=== PATIENT | female | born 1955 | race Caucasian/White ===

== ENCOUNTER 2023-12-31 20:15 | Emergency (ER) | payer MEDICARE, OTHER, SELFPAY ==
[2023-12-31 20:25] VITALS: BP 162/67; PULSE 98; RESP 18; TEMP 36.6; O2SAT 96; BMI 23.5
[2023-12-31 20:56] LABS: Add Manual Diff / Slide Review NO; Basophils Absolute Auto 100 /uL (0-100); Basophils Percent Auto 0.7 % (0-2); Eosinophils Absolute Auto 200 /uL (0-450); Hematocrit 36.5 % (36-46); Hemoglobin 12.5 g/dL (12.0-16.0); Lymphocytes Absolute Auto 1900 /uL (1100-4500); Lymphocytes Percent Auto 20.6 % (25-40); Mean Corpuscular HGB Conc 34.1 % (30-36); Mean Corpuscular Hemoglobin 31.8 PG (26-34); Mean Corpuscular Volume 93.2 fL (80-100); Monocytes Absolute Auto 1200 /uL (0-900); Monocytes Percent Auto 12.6 % (3-14); Neutrophils Absolute Auto 6000 /uL (1500-7000); Neutrophils Percent Auto 64.1 % (50-75); Platelet Count 318 X10^3/uL (150-400); Red Blood Cell Count 3.91 X10^6/uL (4.0-5.2); Red Cell Distribution Width 13.1 % (11.6-14.8); White Blood Cell Count 9.4 X10^3/uL (4.5-11.0)
[2023-12-31 21:06] LABS: Alanine Aminotransferase 25 IU/L (<35); Albumin 4.2 g/dL (3.5-5.0); Albumin Globulin Ratio 1.6 (1.0-2.8); Alkaline Phosphatase 81 U/L (38-126); Aspartate Aminotransferase 20 IU/L (14-36); BUN Creatinine Ratio 27.2 (6-22); Bilirubin Total 0.4 mg/dL (0.2-1.3); Blood Urea Nitrogen 25 mg/dL (7-17); Calcium 8.9 mg/dL (8.4-10.2); Carbon Dioxide 27 mmol/L (22-32); Chloride 108 mmol/L (98-107); Estimated Glomerular Filt Rate > 60 mL/min (>60); Globulin 2.6 g/dL (1.7-4.1); Glucose 115 mg/dL (80-110); HEMOLYSIS < 15 (0-50); Lipase 65 U/L (23-300); Potassium 4.1 mmol/L (3.4-5.1); Sodium 138 mmol/L (137-145); Total Protein 6.8 g/dL (6.3-8.2)
--- NOTE | 2023-12-31 21:20 | ED_ITS ---
HPI - General Adult General Chief complaint: Abdominal Pain Stated complaint: abdominal pain Time Seen by Provider: 12/31/23 21:19 Source: patient Mode of arrival: Ambulatory History of Present Illness HPI narrative: 68-year-old woman with a history of depression and hyperlipidemia presents with 24 hours of abdominal pain localizing to the epigastrium and left upper quadrant. Has become progressively worse to the point that she was acutely uncomfortable prior to arrival in the emergency department. She notes that she did have a bowel movement that seemed a bit more firm than usual this morning but it did not influence her pain. It hurts when she takes a big breath she describes it as a stabbing pain that radiates through through her back. Now seems to be localizing to the epigastrium. Notes the pain was significantly worse after dinner. She has not had abdominal surgery, still has her gallbladder as well as her appendix. No recent weight loss, fever, chills, cough, palpitations, dyspnea. Related Data Previous Rx's Medication Instructions Recorded hydromorphone 2 mg tablet 2 - 4 mg (1 - 2 x 2 mg) PO Q6H #10 01/01/24 (Dilaudid) tabs Allergies Allergy/AdvReac Type Severity Reaction Status Date / Time acetaminophen [From Percocet] AdvReac Intermediate Dizziness Verified 12/31/23 20:36 hydrocodone [From Vicodin] AdvReac Intermediate Dizziness Verified 12/31/23 20:36 oxycodone [From Percocet] AdvReac Intermediate Dizziness Verified 12/31/23 20:36 Review of Systems Review of Systems Narrative: Pertinent positive and negative findings as per HPI Patient History Medical History (Updated 01/01/24 @ 00:15 by Kandi Silverio MD) Depression Social History Smoking Status: Never smoker Smoking Status: Never smoker alcohol intake frequency: a few times a week Alcohol type: beer and wine Substance Use Type: does not use Exam Initial Vital Signs Initial Vital Signs: Vital Signs Temperature 97.9 F 12/31/23 20:25 Pulse Rate 98 H 12/31/23 20:25 Respiratory Rate 18 12/31/23 20:25 Blood Pressure 162/67 H 12/31/23 20:25 Pulse Oximetry 96 12/31/23 20:25 Oxygen Delivery Method Room Air 12/31/23 20:25 General: Healthy appearing, in moderate distress. Able to give a complete and coherent history. Well-nourished well-developed HEENT: Moist mucous membranes, normal sclera with reactive pupils, Respiratory: Lungs are clear to auscultation, no wheezing no rales no rhonchi. Full and symmetrical air movement Cardiac: Regular rate and rhythm no murmurs no bruits Abdomen: Soft, tender in the epigastrium and left upper quadrant with mild guarding, no rebound. Normal bowel tones, no flank pain Skin: Warm and dry, no rashes Neurologic: Grossly neurologically intact with no obvious asymmetries or abnormalities Extremities: No trauma, well perfused Psych: Cooperative, appropriate insight and affect Course Orders Ordered: ED Orders 12/31/23 20:35 Trop I [Troponin I] Stat EKG-12 Lead Stat 12/31/23 20:44 Complete Blood Count AUTO DIFF Stat Comprehensive Metabolic Panel Stat Lipase Stat 12/31/23 21:26 CT abdomen pelvis w con Stat Ondansetron HCl (Ondansetron 4 Mg/2 Ml Inj) 4 mg IV NOW PRN PRN Reason: Nausea And Vomiting Ondansetron HCl (Ondansetron 4 Mg Odt) 4 mg PO NOW PRN PRN Reason: Nausea And Vomiting Vital Signs Vital signs: Vital Signs - 8 hr 12/31/23 20:25 Temperature 97.9 F Pulse Rate 98 H Respiratory Rate 18 Blood Pressure 162/67 H Pulse Oximetry 96 Oxygen Delivery Method Room Air Medical Decision Making Lab Data 12/31/23 20:44 12/31/23 20:44 Labs: Lab Results 12/31/23 12/31/23 Range/Units 20:35 20:44 WBC 9.4 (4.5-11.0) X10^3/uL RBC 3.91 L (4.0-5.2) X10^6/uL Hgb 12.5 (12.0-16.0) g/dL Hct 36.5 (36-46) % MCV 93.2 (80-100) fL MCH 31.8 (26-34) PG MCHC 34.1 (30-36) % RDW 13.1 (11.6-14.8) % Plt Count 318 (150-400) X10^3/uL Neut % (Auto) 64.1 (50-75) % Lymph % (Auto) 20.6 L (25-40) % [place] % (Auto) 12.6 (3-14) % Eos % (Auto) 2.0 (2-4) % Baso % (Auto) 0.7 (0-2) % Neut # (Auto) 6000 (7157-6887) /uL Lymph # (Auto) 1900 (7650-6362) /uL [place] # (Auto) 1200 H (0-900) /uL Eos # (Auto) 200 (0-450) /uL Baso # (Auto) 100 (0-100) /uL Sodium 138 (137-145) mmol/L Potassium 4.1 (3.4-5.1) mmol/L Chloride 108 H (98-107) mmol/L Carbon Dioxide 27 (22-32) mmol/L BUN 25 H (7-17) mg/dL Creatinine 0.92 (0.52-1.04) mg/dL Estimated GFR > 60 (>60) mL/min BUN/Creatinine Ratio 27.2 H (6-22) Glucose 115 H (80-110) mg/dL Calcium 8.9 (8.4-10.2) mg/dL Total Bilirubin 0.4 (0.2-1.3) mg/dL AST 20 (14-36) IU/L ALT 25 (<35) IU/L Alkaline Phosphatase 81 (38-126) U/L Troponin I < 0.012 (0.01-0.034) ng/mL Total Protein 6.8 (6.3-8.2) g/dL Albumin 4.2 (3.5-5.0) g/dL Globulin 2.6 (1.7-4.1) g/dL Albumin/Globulin Ratio 1.6 (1.0-2.8) Lipase 65 (23-300) U/L Imaging Data CT scan - abdomen/pelvis: Radiologist's Impression: PROCEDURE: CT ABDOMEN PELVIS W CON INDICATIONS: LUQ pain TECHNIQUE: After the administration of intravenous contrast, axial sections acquired from the lung bases to the pubic symphysis. Coronal and sagittal reformats were performed. For radiation dose reduction, the following was used: automated exposure control, adjustment of mA and/or kV according to patient size. COMPARISON: None. FINDINGS: Image quality: Diagnostic. Lower Chest: No significant findings. ABDOMEN: Liver: No solid mass. Gallbladder: No radiopaque gallstones or wall thickening. Biliary ducts: No biliary dilation. Pancreas: No ductal dilation. Spleen: Size is within normal limits. Adrenal Glands: No adrenal nodules. Kidneys and Ureters: Multiple bilateral peripelvic cysts. No hydronephrosis. No solid mass. No complex renal cystic lesion which requires follow up. No perinephric stranding. Bilateral ureters are normal in course and caliber. Stomach and Bowel: Normal colonic caliber, without significant wall thickening. There is a small amount of inflammatory stranding within the anti mesenteric fat adjacent to the mid transverse colon. There is no associated wall thickening. Peritoneum: No abnormal intraperitoneal fluid. No free air. Ventral Wall: There is a fat-containing umbilical hernia without acute inflammation. Abdominal Nodes: No retroperitoneal or mesenteric adenopathy by size criteria. Vessels: Aorta and inferior vena cava are normal in size. PELVIS: Pelvic Organs: Unremarkable. Bladder: No bladder wall thickening, accounting for underdistention. Pelvic Nodes: No enlarged lymph nodes. Miscellaneous: No inguinal hernias are seen. Bones: No aggressive osseous abnormality. Chronic appearing compression fracture of L1. IMPRESSION: Focus of inflammation surrounding a lobule of fat visualized on the anti mesenteric side of the mid transverse colon consistent with epiploic appendagitis. No associated wall thickening of the adjacent segment of colon. Otherwise, no acute abnormalities identified in the abdomen or pelvis. Other chronic findings as above. Dictated by: Jimbo Colón M.D. on 12/31/2023 at 23:35 MDM Narrative Medical decision making narrative: CC: 68-year-old woman with left upper abdominal pain over the last 24 hours Data collected from: patient Differential considered: Pancreatitis, abnormality in the pancreatic head, gastritis, duodenal ulcer, choledocholithiasis Exam documented above, pertinent findings include: Tenderness in the left upper quadrant to the epigastrium. Does seem to be improving over the course of her emergency room stay. She does not have an acute surgical abdomen Lab Test results independently reviewed as above. Pertinent findings: CBC is unremarkable Chemistries are reassuring. LFTs are unremarkable Initial troponin is undetectable Lipase is reassuring Independently reviewed EKG: EKG shows sinus rhythm at a rate of 90. Left bundle branch block without acute ischemic changes Imaging studies independently reviewed: CT scan shows epiploic appendagitis without acute abscess or alternative explanation that would require surgical intervention or hospitalization Treatments: Ondansetron Discussion: Findings reviewed with the patient. Explained the anatomy and reasoning behind epiploic appendagitis. She expresses understanding. It all does make sense. At this point pain is improving somewhat we will give her a dose of Toradol prior to discharge and we will give her a prescription for oral Dilaudid as many of the other medications do make her nauseated. At this point there is no indication for hospitalization, additional blood work or advanced imaging. She understands this. I also recommended adding MiraLax to avoid constipation secondary ileus developing due to pain. Questions are answered she is safe for discharge Discharge Plan Departure Patient Disposition: Home Clinical Impression: Epiploic appendagitis Activity Restrictions/Additional Instructions: Thank you for coming in today Off of the colon there are small little outpouchings of fat called epiploic appendages. One of these appendages has gotten twisted or for some reason is not getting enough blood flow and is going to . This is what is causing your pain. Your body will process this just fine, this is not a surgical emergency and it is not an infection that would be treated with antibiotics. Often times if your colon is having pain it will slow down which will cause constipation. This is called an ileus. At this time your body needs a couple of days to fix itself. Using MiraLax to help keep your stool soft make sure that you do not get constipated we will be helpful. This is [id number], you need a cap full in a large glass of water. If you put in in coffee or tea with a little milk you can not even tell it is there. You can use ibuprofen and Tylenol to help with the pain. I have also given you a small prescription for oral Dilaudid that you can add to ibuprofen or Tylenol if the pain is significant. Dilaudid is a narcotic, can cause constipation so the MiraLax we will continue to be helpful. It is different enough that sometimes people who do not tolerate hydrocodone or oxycodone do tolerate Dilaudid If you find that you are getting worse or develop any new symptoms, please feel free to return to the emergency department for further evaluation. Prescriptions: New hydromorphone [Dilaudid] 2 mg tablet 2 - 4 mg PO Q6H Qty: 10 0RF Stand Alone Forms: Patient Portal/API
--- NOTE | 2023-12-31 21:26 | DI.CT.S_ITS ---
PROCEDURE: CT ABDOMEN PELVIS W CON INDICATIONS: LUQ pain TECHNIQUE: After the administration of intravenous contrast, axial sections acquired from the lung bases to the pubic symphysis. Coronal and sagittal reformats were performed. For radiation dose reduction, the following was used: automated exposure control, adjustment of mA and/or kV according to patient size. COMPARISON: None. FINDINGS: Image quality: Diagnostic. Lower Chest: No significant findings. ABDOMEN: Liver: No solid mass. Gallbladder: No radiopaque gallstones or wall thickening. Biliary ducts: No biliary dilation. Pancreas: No ductal dilation. Spleen: Size is within normal limits. Adrenal Glands: No adrenal nodules. Kidneys and Ureters: Multiple bilateral peripelvic cysts. No hydronephrosis. No solid mass. No complex renal cystic lesion which requires follow up. No perinephric stranding. Bilateral ureters are normal in course and caliber. Stomach and Bowel: Normal colonic caliber, without significant wall thickening. There is a small amount of inflammatory stranding within the anti mesenteric fat adjacent to the mid transverse colon. There is no associated wall thickening. Peritoneum: No abnormal intraperitoneal fluid. No free air. Ventral Wall: There is a fat-containing umbilical hernia without acute inflammation. Abdominal Nodes: No retroperitoneal or mesenteric adenopathy by size criteria. Vessels: Aorta and inferior vena cava are normal in size. PELVIS: Pelvic Organs: Unremarkable. Bladder: No bladder wall thickening, accounting for underdistention. Pelvic Nodes: No enlarged lymph nodes. Miscellaneous: No inguinal hernias are seen. Bones: No aggressive osseous abnormality. Chronic appearing compression fracture of L1. IMPRESSION: Focus of inflammation surrounding a lobule of fat visualized on the anti mesenteric side of the mid transverse colon consistent with epiploic appendagitis. No associated wall thickening of the adjacent segment of colon. Otherwise, no acute abnormalities identified in the abdomen or pelvis. Other chronic findings as above. Dictated by: Jimbo Colón M.D. on 12/31/2023 at 23:35 Approved by: Jimbo Colón M.D. on 12/31/2023 at 23:39
--- NOTE | 2023-12-31 21:32 | EKG_ITS ---
[address] [id number] Test Date: 2023-12-31 Pat Name: Natacha Lara Department: Room: Gender: Female [employer]: CHELI : 1955 Requested By: Order Number: [id number] Reading MD: Paul Bonilla Measurements Intervals [place] Rate: 90 P: 31 AL: 160 QRS: 3 QRSD: 130 T: 116 QT: 408 QTc: 499 Interpretive Statements Normal sinus rhythm Left bundle branch block Electronically Signed On 01-01-2024 18:39:28 PDT by Paul Bonilla
[2023-12-31 21:55] LABS: Troponin I < 0.012 ng/mL (0.01-0.034)
[2024-01-01] MEDS: KETOROLAC 30 MG/ML VIAL 15 MG IV (00:16)
[2024-01-01 00:38] VITALS: BP 149/65; PULSE 90; RESP 18; O2SAT 99
== END 2024-01-01 00:39 | disposition home or self-care (01) ==
PROVIDERS: Emergency Provider Emergency Medicine
DX: K63.89 Other specified diseases of intestine (principal)
CPT/HCPCS: 36415; 74177; 80053; 83690; 84484; 85025; 93005; 96374; 99284; J1885; Q9967